=== PATIENT | female | born 1940 | race Caucasian/White ===

== ENCOUNTER 2017-02-15 17:37 | Inpatient (IN) | payer MEDICARE ==
[~2017-02-15] VITALS: Ht 157.5 cm; Wt 53.6 kg
[2017-02-15] MEDS ORDERED: LIPITOR TAB 1010 MG PO (20:14)
[2017-02-15] MEDS ORDERED: CELEXA40 MG PO (20:15)
[2017-02-15] MEDS ORDERED: GALANTAMINE HBR24 MG PO (20:16)
[2017-02-15] MEDS ORDERED: BENADRYL 25MG C25 MG PO (20:16)
[2017-02-15] MEDS ORDERED: NORCO 7.5-3251 EACH PO (20:21)
[2017-02-15] MEDS ORDERED: GLUCOPHAGE1000 MG PO (20:22)
[2017-02-15] MEDS ORDERED: NAMENDA5 MG PO (20:22)
[2017-02-15] MEDS ORDERED: MEGACE TAB 40 M40 MG PO (20:22)
[2017-02-15] MEDS ORDERED: DITROPAN XL5 MG PO (20:23)
[2017-02-15] MEDS ORDERED: METOPROLOL TART25 MG PO (20:23)
[2017-02-15] MEDS ORDERED: SEROQUEL100 MG PO (20:24)
[2017-02-15] MEDS ORDERED: RANEXA1000 MG PO (20:24)
[2017-02-15 20:33] LABS: HEMOGLOBIN 13.9 gm/dl (12.3-15.3); RED BLOOD COUNT 5.59 M/UL (4.00-5.10)
[2017-02-15 20:58] LABS: WHITE BLOOD COUNT 37.4 K/UL (4.5-11.0)
[2017-02-16 01:37] LABS: HEMOGLOBIN 12.8 gm/dl (12.3-15.3); RED BLOOD COUNT 5.24 M/UL (4.00-5.10)
[2017-02-16 01:38] LABS: WHITE BLOOD COUNT 27.4 K/UL (4.5-11.0)
[2017-02-16 06:56] LABS: RED BLOOD COUNT 4.92 M/UL (4.00-5.10); WHITE BLOOD COUNT 22.1 K/UL (4.5-11.0)
[2017-02-16 12:09] LABS: GLUCOSE,CSF 159 mg/dL (50-80); TOTAL PROTEIN,CSF 63 mg/dL (20-45)
[2017-02-17 03:45] LABS: HEMOGLOBIN 10.1 gm/dl (12.3-15.3)
[2017-02-17 03:48] LABS: RED BLOOD COUNT 4.23 M/UL (4.00-5.10); WHITE BLOOD COUNT 16.3 K/UL (4.5-11.0)
[2017-02-17 19:40] LABS: BUN/CREATININE RATIO 26 (0-10)
[2017-02-18 05:30] LABS: HEMOGLOBIN 9.1 gm/dl (12.3-15.3); RED BLOOD COUNT 3.86 M/UL (4.00-5.10)
[2017-02-18 05:33] LABS: WHITE BLOOD COUNT 10.5 K/UL (4.5-11.0)
[2017-02-18 05:49] LABS: BUN/CREATININE RATIO 23 (0-10)
[2017-02-19 03:40] LABS: RED BLOOD COUNT 3.34 M/UL (4.00-5.10)
[2017-02-19 04:15] LABS: BUN/CREATININE RATIO 26 (0-10)
[2017-02-20 04:55] LABS: RED BLOOD COUNT 2.6 M/UL (4.00-5.10); WHITE BLOOD COUNT 10.1 K/UL (4.5-11.0)
[2017-02-20 04:56] LABS: HEMOGLOBIN 6.5 gm/dl (12.3-15.3)
[2017-02-20 05:12] LABS: BUN/CREATININE RATIO 36 (0-10)
[2017-02-20 13:56] LABS: HEMOGLOBIN 10.1 gm/dl (12.3-15.3)
[2017-02-20 20:20] LABS: HEMOGLOBIN 9.4 gm/dl (12.3-15.3)
[2017-02-21 05:37] LABS: HEMOGLOBIN 9.1 gm/dl (12.3-15.3); WHITE BLOOD COUNT 10.3 K/UL (4.5-11.0)
[2017-02-21 05:38] LABS: RED BLOOD COUNT 3.57 M/UL (4.00-5.10)
[2017-02-21 05:57] LABS: BUN/CREATININE RATIO 18 (0-10)
[2017-02-21 11:56] LABS: HEMOGLOBIN 8.9 gm/dl (12.3-15.3)
[2017-02-22 06:08] LABS: HEMOGLOBIN 8.5 gm/dl (12.3-15.3); RED BLOOD COUNT 3.3 M/UL (4.00-5.10); WHITE BLOOD COUNT 9.9 K/UL (4.5-11.0)
[2017-02-22 06:14] LABS: BUN/CREATININE RATIO 13 (0-10)
[2017-02-24 04:07] LABS: HEMOGLOBIN 9.3 gm/dl (12.3-15.3); RED BLOOD COUNT 3.59 M/UL (4.00-5.10); WHITE BLOOD COUNT 11.1 K/UL (4.5-11.0)
[2017-02-24 04:30] LABS: BUN/CREATININE RATIO 10 (0-10)
[2017-02-26 06:20] LABS: BUN/CREATININE RATIO 13 (0-10)
[2017-03-01 11:55] LABS: RED BLOOD COUNT 3.87 M/UL (4.00-5.10); WHITE BLOOD COUNT 7.9 K/UL (4.5-11.0)
[2017-03-01 12:43] LABS: BUN/CREATININE RATIO 19 (0-10)
== END 2017-03-02 16:40 | DRG 871 ==
LOC: PROG CARE 17:37 → CCU 19:54 → MED SURG 4 19:54 → PROG CARE 19:54 → CCU 23:50 → PROG CARE 02-19 13:00 → MED SURG 4 02-21 20:54
PROVIDERS: Hospitalist; Internal Medicine; Internal Medicine Infectious Disease; ADMIT Internal Medicine
PROC: 009U3ZX Drainage of Spinal Canal, Percutaneous Approach, Diagnostic (ICD-10-PCS; 2017-02-16)
PROC: B01BZZZ Fluoroscopy of Spinal Cord (ICD-10-PCS; 2017-02-16)
PROC: 02HV33Z Insertion of Infusion Device into Superior Vena Cava, Percutaneous Approach (ICD-10-PCS; 2017-02-16)
PROC: B543ZZA Ultrasonography of Right Jugular Veins, Guidance (ICD-10-PCS; 2017-02-16)
PROC: 30233N1 Transfusion of Nonautologous Red Blood Cells into Peripheral Vein, Percutaneous Approach (ICD-10-PCS; principal; 2017-02-20)
PROC: 30233N1 Transfusion of Nonautologous Red Blood Cells into Peripheral Vein, Percutaneous Approach (ICD-10-PCS; 2017-02-20)
DX: A41.9 Sepsis, unspecified organism (principal); R65.21 Severe sepsis with septic shock; E13.11 Other specified diabetes mellitus with ketoacidosis with coma; G92 Toxic encephalopathy; I21.4 Non-ST elevation (NSTEMI) myocardial infarction; K72.00 Acute and subacute hepatic failure without coma; I63.9 Cerebral infarction, unspecified; K55.059 Acute (reversible) ischemia of intestine, part and extent unspecified; N17.9 Acute kidney failure, unspecified; E44.0 Moderate protein-calorie malnutrition; K92.2 Gastrointestinal hemorrhage, unspecified; D62 Acute posthemorrhagic anemia; I50.22 Chronic systolic (congestive) heart failure; I42.8 Other cardiomyopathies; E87.4 Mixed disorder of acid-base balance; D68.9 Coagulation defect, unspecified; E87.5 Hyperkalemia; I11.0 Hypertensive heart disease with heart failure; I25.10 Atherosclerotic heart disease of native coronary artery without angina pectoris; R83.5 Abnormal microbiological findings in cerebrospinal fluid; I70.203 Unspecified atherosclerosis of native arteries of extremities, bilateral legs; E78.5 Hyperlipidemia, unspecified; E87.6 Hypokalemia; E83.42 Hypomagnesemia; F03.90 Unspecified dementia, unspecified severity, without behavioral disturbance, psychotic disturbance, mood disturbance, and anxiety; R13.10 Dysphagia, unspecified; I45.81 Long QT syndrome; Z95.1 Presence of aortocoronary bypass graft; Z98.61 Coronary angioplasty status; Z95.820 Peripheral vascular angioplasty status with implants and grafts; Z91.19 Patient's noncompliance with other medical treatment and regimen; Z72.3 Lack of physical exercise; Z68.21 Body mass index [BMI] 21.0-21.9, adult; Z66 Do not resuscitate; Z79.84 Long term (current) use of oral hypoglycemic drugs; Z79.818 Long term (current) use of other agents affecting estrogen receptors and estrogen levels; Z79.891 Long term (current) use of opiate analgesic; Z79.899 Other long term (current) drug therapy; Z90.710 Acquired absence of both cervix and uterus; Z90.49 Acquired absence of other specified parts of digestive tract; Z98.890 Other specified postprocedural states; Z82.49 Family history of ischemic heart disease and other diseases of the circulatory system
CPT/HCPCS: ECHO; 36415; 36600; 70551; 71010; 74000; 74230; 76705; 77003; 80048; 80053; 80202; 81001; 82009; 82140; 82270; 82272; 82550; 82553; 82607; 82803; 82945; 82962; 83036; 83540; 83605; 83735; 83880; 84100; 84132; 84157; 84443; 84484; 85007; 85014; 85018; 85025; 85027; 85610; 85730; 86140; 86850; 86900; 86901; 86920; 87040; 87070; 87081; 87086; 87205; 87210; 89051; 92526; 92610; 92611-GN; 93005; 93306; 93880; 94664; 97110; 97116; 97530; 97535; C1751; C9113; J0360; J0696; J1642; J1644; J1650; J1815; J1940; J2543; J3370; J3480; J7040; J7050; J7070; P9016